=== PATIENT | female | born 1935 | race Caucasian/White ===

== ENCOUNTER → 2019-12-06 | Outpatient (CLI) | payer MEDICARE, OTHER ==
[~2019-12-06] MED LIST: ADVIL200 MG PO; ALKA-SELTZER PO; ASPIRIN325 MG PO; CIPRO500 MG PO; COQ-10 PO; CYANOCOBAL1000 MCG/M IM; EXCEDRIN PO; FIBER PO; IMODIUM2 MG PO; IOPAMIDOL 370 MG/ML 200 ML INFUS..BTL INJ ONE; LORAZEPAM PO; LUMIGAN2.5 M1 OU; MICARDIS80 MG PO; OS-CAL 500+D T1 EACH PO; PEPCID20 MG PO; REFRESH OPTIVE10 ML OU; SODIUM CHLORIDE 0.9% 500ML 500 ML ONE; SODIUM CHLORIDE 0.9% 50ML 50 ML ONE; TRAVATAN Z5 ML OS; TYLENOL PO; VITAMIN B12 IM; VITAMIN D3 1,01 EACH PO; ZOCOR20 MG PO; ZOLPIDEM TARTRA10 MG PO; [UNRECOGNIZED DRUG - OTHER] PO
[2019-12-06 17:44] LABS: CREATININE, SERUM 0.97 mg/dL (0.57-1.11)
--- NOTE | 2019-12-06 21:12 | Diagnostic Imaging Report ---
EXAM: CT Abdomen and Pelvis WITH contrast INDICATION: Diarrhea, abdominal pain COMPARISON: None. TECHNIQUE: Abdomen and pelvis were scanned utilizing a multidetector helical scanner from the lung base to the pubic symphysis after administration of IV contrast. Coronal and sagittal reformations were obtained. Routine protocol was performed. Scan was performed when during portal venous phase. IV CONTRAST: 100 mL of Isovue 370 ORAL CONTRAST: Water COMPLICATIONS: None RADIATION DOSE: Total DLP: 299 mGy*cm Estimated effective dose: (DLP x 0.015 x size factor) mSv CTDIvol has been reviewed. It is below the limits set by the Radiation Protocol Committee (RPC). Dose modulation, iterative reconstruction, and/or weight based adjustment of the mA/kV was utilized to reduce the radiation dose to as low as reasonably achievable. FINDINGS: LINES and TUBES: None. LOWER THORAX: Mild chronic scarring/interstitial change of the lung bases. No pleural effusion. HEPATOBILIARY: No focal hepatic lesions. No biliary ductal dilation. GALLBLADDER: No radio-opaque stones or sludge. No wall thickening. SPLEEN: No splenomegaly. PANCREAS: No focal masses or ductal dilatation. ADRENALS: No adrenal nodules KIDNEYS/URETERS: Kidneys enhance symmetrically. No hydronephrosis. Multiple bilateral renal cysts, largest 3.9 cm in the left interpolar region. A 1 cm exophytic cyst of the right renal lower pole is slightly dense and is therefore likely hemorrhagic/proteinaceous in content. No stones. GI TRACT: No abnormal distention, wall thickening, or evidence of bowel obstruction. Advanced colonic diverticulosis. Fluid content of the small bowel. PELVIC ORGANS/BLADDER: Grossly unremarkable. LYMPH NODES: No lymphadenopathy. VESSELS: Scattered atherosclerotic calcifications. PERITONEUM / RETROPERITONEUM: No free air or fluid. BONES: No acute osseous abnormality. Thoracolumbar degenerative change. SOFT TISSUES: Unremarkable. IMPRESSION: 1. No acute abdominal or pelvic abnormality. 2. Mildly prominent fluid-filled loops of small bowel. This is a nonspecific finding but may be seen with enteritis. 3. Colonic diverticulosis. No diverticulitis. Signed by: Ziyad Monroy MD on 12/06/2019 9:09 PM
== END ==
LOC: CT 15:32
PROVIDERS: ATTEND Internal Medicine Gastroenterology
DX: R19.7 Diarrhea, unspecified (principal); R10.30 Lower abdominal pain, unspecified
CPT/HCPCS: 36415; 74177; 82565; 84520; 96360; J7040; Q9967

== ENCOUNTER 2020-02-27 11:47 | Emergency (ER) | payer MEDICARE, OTHER ==
[~2020-02-27] VITALS: Ht 154.9 cm; Wt 45.4 kg
[~2020-02-27 11:47] MED LIST changes: -IOPAMIDOL 370 MG/ML 200 ML INFUS..BTL INJ ONE; -SODIUM CHLORIDE 0.9% 500ML 500 ML ONE; -SODIUM CHLORIDE 0.9% 50ML 50 ML ONE
[2020-02-27] MEDS ORDERED: SODIUM CHLORIDE 0.9% 1000ML 1,000 ML IV STA (12:31)
[2020-02-27 12:39] LABS: BASOPHILS # (AUTO) 0.1 (0.0-0.1); BASOPHILS % 0.5 % (0.0-1.0); EOSINOPHILS # (AUTO) 0.1 (0.0-0.4); EOSINOPHILS % 0.4 % (0.0-6.0); HEMATOCRIT 40.7 % (34.2-44.1); HEMOGLOBIN 13.7 g/dL (12.0-16.0); LYMPHOCYTES # (AUTO) 1.7 (1.0-3.2); LYMPHOCYTES % 14.5 % (18.0-39.1); MEAN CORPUSCULAR HEMOGLOBIN 31.6 pg (28-32); MEAN CORPUSCULAR HGB CONC 33.7 g/dL (31-35); MONOCYTES # (AUTO) 0.7 (0.2-0.8); MONOCYTES % 5.9 % (4.4-11.3); NEUTROPHILS # (AUTO) 9.1 (2.1-6.9); NEUTROPHILS % 78.2 % (38.7-80.0); PLATELET COUNT 314 x10e3/uL (140-360); RED BLOOD COUNT 4.33 x10e6/uL (3.6-5.1); RED CELL DISTRIBUTION WIDTH 14.1 % (11.7-14.4)
[2020-02-27 12:44] LABS: INR 0.88; PROTHROMBIN TIME 12.4 seconds (11.9-14.5)
[2020-02-27 12:45] LABS: PARTIAL THROMBOPLASTIN TIME 25.2 seconds (23.8-35.5)
[2020-02-27 12:52] LABS: ALBUMIN 4.5 g/dL (3.5-5.0); ALBUMIN/GLOBULIN RATIO 1.5 (0.8-2.0); ANION GAP 15.4 mmol/L (8-16); CALCIUM 10.8 mg/dL (8.4-10.2); CREATININE, SERUM 1.06 mg/dL (0.57-1.11); MAGNESIUM 2.1 MG/DL (1.3-2.1); POTASSIUM 4.4 mmol/L (3.5-5.1)
[2020-02-27 12:59] LABS: CREATINE KINASE MB 1.3 ng/mL (0-5.0)
[2020-02-27 13:26] LABS: CLARITY,URINE CLEAR (CLEAR); COLOR,URINE YELLOW (YELLOW)
[2020-02-27 13:27] LABS: KETONES,URINE NEGATIVE (NEGATIVE); LEUKOCYTE ESTERASE ,URINE NEGATIVE (NEGATIVE); NITRITE,URINE NEGATIVE (NEGATIVE); PROTEIN,URINE DIPSTICK NEGATIVE (NEGATIVE); URINE UROBILINOGEN 0.2 mg/dL (0.2 - 1)
[2020-02-27 13:28] LABS: BACTERIA,URINE RARE /HPF; BILIRUBIN,URINE NEGATIVE (NEGATIVE); EPITHELIAL CELLS,URINE FEW /LPF; RBC,URINE 0-5 /HPF (0-5); WBC,URINE (MAN) 0-5 /HPF (0-5)
--- NOTE | 2020-02-27 13:56 | Emergency Department Note ---
History of Present Illnes History of Present Illness Chief Complaint: Genitourinary History of Present Illness This is a 84 year old female PT C/O ABDOMINAL CRAMPING AND PAINFUL URINATION X 3-4 DAYS AGO, LAST UTI WAS 30 YRS AGO, PT ALSO STATES THAT SHE IS HAVING EPISODES OF DIARRHEA THAT STARTED THIS MORNING BUT STATES SHE HAS CHRONIC DIARRHEA X YEARS Historian: Patient Arrival Mode: Car Non Destructive Testing Engineer Required: No Onset (how long ago): day(s) (3) Radiation: Reports non-radiation Severity: mild Onset quality: gradual Timing of current episode: intermittent Chronicity: recurrent Context: Denies recent illness Relieving factors: none Exacerbating factors: none Associated symptoms: Reports denies other symptoms Past Medical/Family History Physician Review I have reviewed the patient's past medical and family history. Any updates have been documented here. Past Medical History Recent Fever: No Clinical Suspicion of Infectio: No New/Unexplained Change in Ment: No Past Medical History: Hypertension, UTI's, Anxiety, Hyperlipedemia Other Medical History: GLAUCOMA Social History Smoking Cessation: Current every day smoker Counseling Performed: Yes Alcohol Use: None Any Illegal Drug Use: No TB Exposure/Symptoms: No Physically hurt or threatened: No Family History Family history of heart diseas: No Other Any Pre-Existing Lines (PICC,: No Review of Systems Review of Systems Constitutional: Reports no symptoms EENTM: Reports no symptoms Cardiovascular: Reports no symptoms Respiratory: Reports no symptoms Gastrointestinal: Reports as per HPI Genitourinary: Reports as per HPI Musculoskeletal: Reports no symptoms Integumentary: Reports no symptoms Neurological: Reports no symptoms Psychological: Reports no symptoms Endocrine: Reports no symptoms Hematological/Lymphatic: Reports no symptoms Physical Exam Related Data Allergies: Coded Allergies: codeine (Verified Allergy, 11/17/13) meperidine (Verified Allergy, 11/17/13) Triage Vital Signs Vital Signs Date Time Temp Pulse Resp B/P (MAP) Pulse Ox O2 Delivery O2 Flow Rate FiO2 02/27/20 12:08 98.1 78 18 179/88 100 Room Air Vital signs reviewed: Yes Physical Exam CONSTITUTIONAL Constitutional: Present well-developed, Present well-nourished HENT HENT: Present normocephalic, Present atraumatic, Present oropharynx clear/moist, Present nose normal HENT L/R: Present left ext ear normal, Present right ext ear normal EYES Eyes: Reports PERRL, Reports conjunctivae normal NECK Neck: Present ROM normal PULMONARY Pulmonary: Present effort normal, Present breath sounds normal CARDIOVASCULAR Cardiovascular: Present regular rhythm, Present heart sounds normal, Present capillary refill normal, Present normal rate GASTROINTESTINAL Abdominal: Present soft, Present nontender, Present bowel sounds normal GENITOURINARY Genitourinary: Present vagina normal (EXTERNAL EXAM (WITH HAFSA TEMPLE) TO EVALUATE FOR UTERINE OR BLADDER PROLAPSE - NONE, NORMAL EXAM) SKIN Skin: Present warm, Present dry MUSCULOSKELETAL Musculoskeletal: Present ROM normal NEUROLOGICAL Neurological: Present alert, Present oriented x 3, Present no gross motor or sensory deficits PSYCHOLOGICAL Psychological: Present mood/affect normal, Present judgement normal Results Laboratory Result Diagram: 02/27/20 1217 02/27/20 1217 Laboratory Laboratory Tests Test 02/27/20 12:17 White Blood Count 11.69 x10e3/uL (4.8-10.8) Red Blood Count 4.33 x10e6/uL (3.6-5.1) Hemoglobin 13.7 g/dL (12.0-16.0) Hematocrit 40.7 % (34.2-44.1) Mean Corpuscular Volume 94.0 fL (81-99) Mean Corpuscular Hemoglobin 31.6 pg (28-32) Mean Corpuscular Hemoglobin Concent 33.7 g/dL (31-35) Red Cell Distribution Width 14.1 % (11.7-14.4) Platelet Count 314 x10e3/uL (140-360) Neutrophils (%) (Auto) 78.2 % (38.7-80.0) Lymphocytes (%) (Auto) 14.5 % (18.0-39.1) Monocytes (%) (Auto) 5.9 % (4.4-11.3) Eosinophils (%) (Auto) 0.4 % (0.0-6.0) Basophils (%) (Auto) 0.5 % (0.0-1.0) Neutrophils # (Auto) 9.1 (2.1-6.9) Lymphocytes # (Auto) 1.7 (1.0-3.2) Monocytes # (Auto) 0.7 (0.2-0.8) Eosinophils # (Auto) 0.1 (0.0-0.4) Basophils # (Auto) 0.1 (0.0-0.1) Absolute Immature Granulocyte (auto 0.06 x10e3/uL (0-0.1) Prothrombin Time 12.4 seconds (11.9-14.5) Prothromb Time International Ratio 0.88 Activated Partial Thromboplast Time 25.2 seconds (23.8-35.5) Urine Color Yellow (YELLOW) Urine Clarity Clear (CLEAR) Urine pH 7 (5 - 7) Urine Specific [place] 1.015 (1.010-1.025) Urine Protein Negative (NEGATIVE) Urine Glucose (UA) Negative (NEGATIVE) Urine Ketones Negative (NEGATIVE) Urine Blood Negative (NEGATIVE) Urine Nitrite Negative (NEGATIVE) Urine Bilirubin Negative (NEGATIVE) Urine Urobilinogen 0.2 mg/dL (0.2 - 1) Urine Leukocyte Esterase Negative (NEGATIVE) Urine RBC 0-5 /HPF (0-5) Urine WBC 0-5 /HPF (0-5) Urine Epithelial Cells Few /LPF (NONE) Urine Bacteria Rare /HPF (NONE) Sodium Level 137 mmol/L (136-145) Potassium Level 4.4 mmol/L (3.5-5.1) Chloride Level 100 mmol/L (98-107) Carbon Dioxide Level 26 mmol/L (22-29) Anion Gap 15.4 mmol/L (8-16) Blood Urea Nitrogen 17 mg/dL (7-26) Creatinine 1.06 mg/dL (0.57-1.11) Estimat Glomerular Filtration Rate 49 ML/MIN (60-) BUN/Creatinine Ratio 16 (6-25) Glucose Level 79 mg/dL (74-118) Calcium Level 10.8 mg/dL (8.4-10.2) Magnesium Level 2.1 MG/DL (1.3-2.1) Total Bilirubin 0.5 mg/dL (0.2-1.2) Aspartate Amino Transf (AST/SGOT) 19 IU/L (5-34) Alanine Aminotransferase (ALT/SGPT) 14 IU/L (0-55) Alkaline Phosphatase 51 IU/L (40-150) Creatine Kinase 40 IU/L (29-168) Creatine Kinase MB 1.30 ng/mL (0-5.0) Troponin I 0.012 ng/mL (0-0.300) Total Protein 7.6 g/dL (6.5-8.1) Albumin 4.5 g/dL (3.5-5.0) Globulin 3.1 g/dL (2.3-3.5) Albumin/Globulin Ratio 1.5 (0.8-2.0) Lab results reviewed: Yes Assessment & Plan Medical Decision Making MDM UTI SX'S AND SAYS HER VAGINA FEELS "OPEN", AND SOME DIARRHEA (CHRONIC PROBLEM) - CHECK CBC, CHEM, UA/CX, VAG EXAM TO R/O UTERINE/BLADDER PROLAPSE, ELECTROLYTE ABNL Reassessment Reassessment DC HOME, ROSANGELAYL FOR ABD CRAMPS/DIARRHEA, F/U PCP. PT FEELS BETTER AFTER IVF'S Assessment & Plan Final Impression: (1) Diarrhea (2) Abdominal cramping Depart Disposition: HOME, SELF-CARE Last Vital Signs Date Time Temp Pulse Resp B/P (MAP) Pulse Ox O2 Delivery O2 Flow Rate FiO2 02/27/20 12:08 98.1 78 18 179/88 100 Room Air Home Meds Reported Medications Bimatoprost (LUMIGAN) 2.5 Ml Drops, 2.5 ML OU DAILY, BOTTLE 02/18/14 Loperamide Hcl* (IMODIUM*) 2 Mg Cap, 2 MG PO PRN, CAP 02/18/14 [Wal-Phen] No Conflict Check, 1 TAB PO PRN ALLERGY PILL 11/18/13 [Tylenol] No Conflict Check, 500 MG PO PRN PRN for PAIN 11/18/13 [Coq-10] No Conflict Check, 400 MG PO DAILY 11/18/13 Calcium Carbonate/Vitamin D3 (OS-ALCON 500+D TABLET) 1 Each Tablet, 500 MG PO DAILY, TAB 11/18/13 Ca Cmb No.1/Vit D3/B-6/Fa/B12 (VITAMIN D3 1,000 UNIT TABLET) 1 Each Tablet, 1000 UNITS PO DAILY 11/18/13 Simvastatin (ZOCOR) 20 Mg Tablet, 20 MG PO BEDTIME, TAB 11/18/13 Telmisartan (MICARDIS) 80 Mg Tablet, 80 MG PO DAILY 11/18/13 [Lorazepam] No Conflict Check, 2 MG PO 1/2TID 11/18/13 Cyanocobalamin (CYANOCOBALAMIN INJECTION) 1,000 Mcg/Ml Soln, 2 ML IM Q2WKS, VIAL 11/18/13 Medications in the ED Sodium Chloride 1,000 ml @ 0 mls/hr Q0M STAT IV ; Start 02/27/20 at 12:31; Stop 02/27/20 at 12:33; Status DC XIOMARA MENDOZA MD Feb 27, 2020 13:56
[2020-02-27 13:59] VITALS: BP 153/85
== END 2020-02-27 14:20 | disposition home or self-care (01) ==
LOC: ER 12:10
DX: R10.9 Unspecified abdominal pain (principal); R19.7 Diarrhea, unspecified; R30.0 Dysuria; I10 Essential (primary) hypertension; E78.5 Hyperlipidemia, unspecified; F41.9 Anxiety disorder, unspecified; H40.9 Unspecified glaucoma; F17.210 Nicotine dependence, cigarettes, uncomplicated
CPT/HCPCS: 36415; 80053; 81001; 82550; 82553; 83735; 84484; 85025; 85610; 85730; 87086; 99284; J7030

== ENCOUNTER 2021-10-17 12:32 | Observation (INO) | payer MEDICARE, OTHER ==
[~2021-10-17] VITALS: Ht 152.4 cm; Wt 54.4 kg
[2021-10-17] MEDS ORDERED: HYDRALAZINE HCL 20 MG/ML VIAL IV STA (12:48)
[2021-10-17 13:41] LABS: BASOPHILS # (AUTO) 0.1 (0.0-0.1); BASOPHILS % 0.6 % (0.0-1.0); EOSINOPHILS # (AUTO) 0.3 (0.0-0.4); EOSINOPHILS % 3.1 % (0.0-6.0); HEMATOCRIT 39.5 % (34.2-44.1); HEMOGLOBIN 13.5 g/dL (12.0-16.0); LYMPHOCYTES # (AUTO) 1.9 (1.0-3.2); LYMPHOCYTES % 17.9 % (18.0-39.1); MEAN CORPUSCULAR HEMOGLOBIN 33.2 pg (28-32); MEAN CORPUSCULAR HGB CONC 34.2 g/dL (31-35); MEAN CORPUSCULAR VOLUME 97.1 fL (81-99); MONOCYTES # (AUTO) 0.8 (0.2-0.8); MONOCYTES % 7.8 % (4.4-11.3); NEUTROPHILS # (AUTO) 7.6 (2.1-6.9); PLATELET COUNT 365 x10e3/uL (140-360); RED BLOOD COUNT 4.07 x10e6/uL (3.6-5.1); RED CELL DISTRIBUTION WIDTH 14.6 % (11.7-14.4)
[2021-10-17 14:07] LABS: ALBUMIN 3.6 g/dL (3.5-5.0); ALBUMIN/GLOBULIN RATIO 0.9 (0.8-2.0); ANION GAP 13.1 mmol/L (8-16); CALCIUM 10.5 mg/dL (8.4-10.2); CREATININE, SERUM 0.92 mg/dL (0.57-1.11); POTASSIUM 4.1 mmol/L (3.5-5.1)
[2021-10-17] MEDS ORDERED: SODIUM CHLORIDE FLUSH 10 ML SYR INJ PRN (14:45)
[2021-10-17] MEDS ORDERED: ASPIRIN 81 MG CHEW TAB PO ONE (14:45)
[2021-10-17] MEDS ORDERED: ONDANSETRON HCL INJ 2MG/ML 2ML 2 MG/ML VIAL IV PRN (14:45)
[2021-10-17] MEDS ORDERED: LACTULOSE SYRUP 20 GM/30 ML UDC PO ONE (15:00)
[2021-10-17 16:39] VITALS: BP 152/84
[2021-10-17 17:31] VITALS: BP 152/84
[2021-10-17] MEDS ORDERED: ACETAMINOPHEN 325 MG TAB PO PRN ×2 (18:15→18:45)
[2021-10-17] MEDS ORDERED: LABETALOL HCL 5 MG/ML 20ML VIAL IV PRN (18:15)
[2021-10-17] MEDS ORDERED: DAILY VITAMIN1 EAC4 PO (18:33)
[2021-10-17] MEDS ORDERED: ALL DAY RELIEF220 MG PO (18:33)
[2021-10-17] MEDS ORDERED: CALCIUM CARBON500 MG PO (18:33)
[2021-10-17] MEDS ORDERED: SENOKOT-S TABL1 EACH PO (18:33)
[2021-10-17] MEDS ORDERED: ATIVAN2 MG PO (18:33)
[2021-10-17] MEDS ORDERED: ALIGN4 MG PO (18:33)
[2021-10-17] MEDS ORDERED: B COMPLEX FORM0.4 MG PO (18:33)
[2021-10-17] MEDS ORDERED: NAPROXEN250 MG PO (18:33)
[2021-10-17] MEDS ORDERED: TUMS ULTRA400 MG PO (18:33)
[2021-10-17] MEDS ORDERED: PROTONIX40 MG PO (18:33)
[2021-10-17] MEDS ORDERED: VYZULTA2.5 ML OP (18:33)
[2021-10-17] MEDS ORDERED: REFRESH PLUS1 EACH (18:33)
[2021-10-17] MEDS ORDERED: COSOPT EYE DROP10 ML OP (18:33)
[2021-10-17] MEDS ORDERED: TYLENOL325 MG PO (18:33)
[2021-10-17] MEDS ORDERED: ATIVAN1 MG PO (18:33)
[2021-10-17] MEDS ORDERED: VOLTAREN ARTHRI20 GM TOP (18:33)
[2021-10-17] MEDS ORDERED: PANTOPRAZOLE SO40 MG PO (18:35)
[2021-10-17] MEDS ORDERED: SENNA-S TABLET PO PRN (18:45)
[2021-10-17] MEDS ORDERED: LORAZEPAM 1 MG TAB PO PRN (18:45)
[2021-10-17] MEDS ORDERED: TRAMADOL HCL 50 MG TAB PO PRN (19:00)
[2021-10-17] MEDS: LORAZEPAM 1 MG TAB PO SCH (21:00)
[2021-10-17] MEDS ORDERED: LATANOPROSTENE BUNOD OP SCH (21:00)
[2021-10-17] MEDS ORDERED: SIMVASTATIN 20 MG TAB PO SCH (21:00)
[2021-10-17] MEDS ORDERED: DORZOLAMIDE/TIMOLOL (OPTH SOL) 10 ML DRPETTE OP SCH (21:00)
[2021-10-17 21:06] VITALS: BP 137/79
[2021-10-18 00:46] VITALS: BP 136/76
[2021-10-18 05:02] LABS: BASOPHILS # (AUTO) 0.1 (0.0-0.1); BASOPHILS % 0.9 % (0.0-1.0); EOSINOPHILS # (AUTO) 0.3 (0.0-0.4); EOSINOPHILS % 3.6 % (0.0-6.0); HEMATOCRIT 36.5 % (34.2-44.1); HEMOGLOBIN 12.3 g/dL (12.0-16.0); LYMPHOCYTES # (AUTO) 1.7 (1.0-3.2); LYMPHOCYTES % 21.2 % (18.0-39.1); MEAN CORPUSCULAR HEMOGLOBIN 32.9 pg (28-32); MEAN CORPUSCULAR HGB CONC 33.7 g/dL (31-35); MEAN CORPUSCULAR VOLUME 97.6 fL (81-99); MONOCYTES % 11.9 % (4.4-11.3); NEUTROPHILS % 61.8 % (38.7-80.0); PLATELET COUNT 330 x10e3/uL (140-360); RED BLOOD COUNT 3.74 x10e6/uL (3.6-5.1)
[2021-10-18 05:30] LABS: ALBUMIN/GLOBULIN RATIO 0.9 (0.8-2.0); ANION GAP 12.8 mmol/L (8-16); CALCIUM 10.3 mg/dL (8.4-10.2); CREATININE, SERUM 0.94 mg/dL (0.57-1.11); MAGNESIUM 1.8 MG/DL (1.3-2.1); POTASSIUM 3.8 mmol/L (3.5-5.1)
[2021-10-18 05:32] VITALS: BP 157/88
[2021-10-18 05:45] LABS: CHOL/HDL RATIO 3.1 (3.0-3.6)
[2021-10-18 06:47] LABS: CREATINE KINASE MB 1.1 ng/mL (0-5.0)
[2021-10-18 08:00] VITALS: BP 151/94
[2021-10-18 08:22] VITALS: BP 151/94
[2021-10-18] MEDS ORDERED: SENNOSIDES 8.6 MG TAB PO SCH (09:00)
[2021-10-18] MEDS ORDERED: DOCUSATE SODIUM 100 MG CAP PO SCH (09:00)
[2021-10-18] MEDS ORDERED: TELMISARTAN 40 MG TAB PO SCH (09:00)
[2021-10-18] MEDS ORDERED: ESCITALOPRAM OXALATE 10 MG TAB PO SCH (09:00)
[2021-10-18] MEDS ORDERED: PANTOPRAZOLE SOD 40 MG TABEC PO SCH (09:00)
[2021-10-18] MEDS ORDERED: NIFEDIPINE CR 30 MG TAB PO SCH (09:00)
[2021-10-18] MEDS: LORAZEPAM 1 MG TAB PO SCH (09:26)
[2021-10-18] MEDS ORDERED: ULTRAM 50MG50 MG PO (11:12)
[2021-10-18] MEDS ORDERED: LEXAPRO10 MG PO (11:12)
[2021-10-18] MEDS ORDERED: ATIVAN1 MG PO (11:12)
[2021-10-18 11:35] VITALS: BP 160/78
[2021-10-18] MEDS ORDERED: ONDANSETRON HCL 4 MG ORAL DISINTEGRATING TAB PO PRN (12:45)
[2021-10-18] MEDS ORDERED: ENOXAPARIN 30 MG/0.3 ML SYR SC SCH (17:00)
== END 2021-10-18 12:37 | disposition home or self-care (01) ==
LOC: ER 12:43 → INTOOBSV 14:44 → ERHOLD 14:44 → MED/SURG 16:10
PROVIDERS: ADMIT Internal Medicine; ATTEND Internal Medicine
DX: I10 Essential (primary) hypertension (principal); R51.9 Headache, unspecified; K59.00 Constipation, unspecified; F41.9 Anxiety disorder, unspecified; E78.5 Hyperlipidemia, unspecified; R94.31 Abnormal electrocardiogram [ECG] [EKG]; K21.9 Gastro-esophageal reflux disease without esophagitis; M25.561 Pain in right knee; H40.9 Unspecified glaucoma; Z88.5 Allergy status to narcotic agent; Z88.8 Allergy status to other drugs, medicaments and biological substances; Z87.440 Personal history of urinary (tract) infections; Z86.16 Personal history of COVID-19; Z20.822 Contact with and (suspected) exposure to COVID-19
CPT/HCPCS: 36415 ×2; 71045; 80053 ×2; 80061; 82550; 82553; 83735; 84484 ×2; 85025 ×2; 93005; 93306; 94799 ×2; 99284; G0378 ×2; J0360; S0164; U0002

== ENCOUNTER 2023-12-01 20:22 | Inpatient (IN) | payer MEDICARE, OTHER ==
[~2023-12-01] VITALS: Ht 154.9 cm; Wt 54.4 kg
[~2023-12-01 20:22] MED LIST changes: +ACETAMINOPHEN 1000 MG/100 ML IV ONE; +ALIGN4 MG PO; +ALL DAY RELIEF220 MG PO; +AMLODIPINE BESYL5 MG PO; +ATIVAN1 MG PO; +ATIVAN2 MG PO; +B COMPLEX FORM0.4 MG PO; +BRIMONIDINE TART5 ML; +CAL-GEST200 MG PO; +CALCIUM CARBON500 MG PO; +COLACE100 MG/10 PO; +COSOPT EYE DROP10 ML OP; +DAILY VITAMIN1 EAC4 PO; +DEXAMETHASONE SOD PHOS INJ 4 MG/ML SDV ONE; +HYDRALAZINE HCL50 MG PO; +LATANOPROST2.5 ML; +LEXAPRO10 MG PO; +LIDOCAINE HCL 2% LOCAL INJ 5 ML SDV VIAL INJ ONE; +LOSARTAN POTAS100 MG PO; +MELATONIN3 MG PO; +MELOXICAM7.5 MG PO; +MIRALAX17 GM PO; +NAPROXEN250 MG PO; +ONDANSETRON HCL INJ 2MG/ML 2ML 2 MG/ML VIAL ONE; +ONDANSETRON ODT8 MG PO; +PANTOPRAZOLE SO40 MG PO; +PROPOFOL IV EMULSION 10 MG/ML 20 ML VIAL ONE; +PROTONIX40 MG PO; +REFRESH PLUS1 EACH; +ROCURONIUM BROMIDE 10 MG/ML 5ML VIAL IV ONE; +SENOKOT-S TABL1 EACH PO; +SEVOFLURANE INHAL SOLN 250 ML PEN BTL ONE; +SUGAMMADEX SODIUM 200 MG/2 ML VIAL IV ONE; +TRAZODONE HCL50 MG PO; +TUMS ULTRA400 MG PO; +TYLENOL325 MG PO; +ULTRAM 50MG50 MG PO; +VOLTAREN ARTHRI20 GM TOP; +VYZULTA2.5 ML OP
[2023-12-01] MEDS ORDERED: ONDANSETRON HCL INJ 2MG/ML 2ML 2 MG/ML VIAL IV PRN (22:15)
[2023-12-01] MEDS ORDERED: Morphine 4mg INJECTION 4 MG/ML INJ IV PRN (22:15)
[2023-12-02] VITALS (14 sets, daily range): BP systolic 132–166; BP diastolic 70–110; PULSE 60–88; RESP 16–29; TEMP 97.9–98.5; O2SAT 92–96
[2023-12-02 00:24] LABS: BASOPHILS # (AUTO) 0.1 (0.0-0.1); BASOPHILS % 0.4 % (0.0-1.0); EOSINOPHILS # (AUTO) 0.3 (0.0-0.4); EOSINOPHILS % 2.2 % (0.0-6.0); HEMATOCRIT 33.5 % (34.2-44.1); HEMOGLOBIN 11.6 g/dL (12.0-16.0); LYMPHOCYTES # (AUTO) 2.6 (1.0-3.2); LYMPHOCYTES % 18.8 % (18.0-39.1); MEAN CORPUSCULAR HEMOGLOBIN 31.8 pg (28-32); MEAN CORPUSCULAR HGB CONC 34.6 g/dL (31-35); MEAN CORPUSCULAR VOLUME 91.8 fL (81-99); MONOCYTES # (AUTO) 1.6 (0.2-0.8); MONOCYTES % 11.6 % (4.4-11.3); NEUTROPHILS # (AUTO) 9.1 (2.1-6.9); NEUTROPHILS % 66.3 % (38.7-80.0); PLATELET COUNT 213 x10e3/uL (140-360); RED BLOOD COUNT 3.65 x10e6/uL (3.6-5.1); RED CELL DISTRIBUTION WIDTH 16.6 % (11.7-14.4); WHITE BLOOD COUNT 13.74 x10e3/uL (4.8-10.8)
[2023-12-02 00:39] LABS: ALBUMIN 3.2 g/dL (3.5-5.0); ANION GAP 13.4 mmol/L (8-16); BILIRUBIN,TOTAL 0.5 mg/dL (0.2-1.2); CALCIUM 10.4 mg/dL (8.4-10.2); CREATININE, SERUM 0.83 mg/dL (0.57-1.11); POTASSIUM 4.4 mmol/L (3.5-5.1); TOTAL PROTEIN 6.4 g/dL (6.5-8.1)
[2023-12-02] MEDS ORDERED: ACETAMINOPHEN 325 MG TAB PO PRN (10:30)
[2023-12-02] MEDS ORDERED: HYDRALAZINE HCL 20 MG/ML VIAL IV PRN (10:30)
[2023-12-02] MEDS ORDERED: FENTANYL CITRATE/PF 100MCG/2 ML INJ ONE (11:34)
[2023-12-02] MEDS ORDERED: DIPHENHYDRAMINE HCL INJ 50 MG/ML VIAL IV PRN (12:45)
[2023-12-02] MEDS ORDERED: ONDANSETRON HCL INJ 2MG/ML 2ML 2 MG/ML VIAL IV PRN (12:45)
[2023-12-02] MEDS ORDERED: ACETAMINOPHEN 650 MG SUPP PR PRN (12:45)
[2023-12-02] MEDS ORDERED: ALBUTEROL/IPRATROPIUM 3 ML NEB ONE (13:12)
[2023-12-02] MEDS: LATANOPROST(OPTH) 2.5 ML BTL OP SCH (17:00)
[2023-12-02] MEDS ORDERED: DORZOLAMIDE/TIMOLOL (OPTH SOL) 10 ML DRPETTE OP SCH (17:00)
[2023-12-02] MEDS ORDERED: BRIMONIDINE TARTRATE (OPTH) 5 ML LIQD OP SCH (17:00)
[2023-12-02] MEDS: SODIUM CHLORIDE 0.9% 1000ML 1,000 ML IV SCH (18:22)
[2023-12-02] MEDS: CELECOXIB 200 MG CAP PO SCH (18:22)
[2023-12-02] MEDS: ASPIRIN 325 MG TAB PO SCH (18:22)
[2023-12-02] MEDS: HYDROCODONE/APAP 5MG-325MG TAB PO PRN (18:33)
[2023-12-02] MEDS: DOCUSATE SODIUM 100 MG CAP PO PRN (18:33)
[2023-12-02] MEDS: LORAZEPAM 1 MG TAB PO PRN (18:33)
[2023-12-02] MEDS: SIMVASTATIN 20 MG TAB PO SCH (21:01)
[2023-12-02] MEDS: DORZOLAMIDE/TIMOLOL (OPTH SOL) 10 ML DRPETTE OP SCH (21:02)
[2023-12-03] VITALS (12 sets, daily range): BP systolic 92–157; BP diastolic 71–88; PULSE 72–88; RESP 16–17; TEMP 97.4–98.7; O2SAT 93–95
[2023-12-03 05:55] LABS: HEMATOCRIT 29.2 % (34.2-44.1); HEMOGLOBIN 9.5 g/dL (12.0-16.0)
[2023-12-03] MEDS ORDERED: ACETAMINOPHEN 1000 MG/100 ML IV PRN (12:45)
[2023-12-03] MEDS: BISACODYL 10 MG SUPP PR ONE (15:18)
[2023-12-03] MEDS: HYDROCODONE/APAP 7.5MG-325MG 1 EA TAB PO PRN (21:47)
[2023-12-04] VITALS (8 sets, daily range): BP systolic 105–153; BP diastolic 75–104; PULSE 82–95; RESP 16–19; TEMP 97.5–98.1; O2SAT 96–100
[2023-12-04 05:55] LABS: BASOPHILS % 0.3 % (0.0-1.0); EOSINOPHILS # (AUTO) 0.4 (0.0-0.4); EOSINOPHILS % 3.7 % (0.0-6.0); HEMATOCRIT 27.9 % (34.2-44.1); LYMPHOCYTES # (AUTO) 2.1 (1.0-3.2); LYMPHOCYTES % 20.4 % (18.0-39.1); MEAN CORPUSCULAR HGB CONC 32.3 g/dL (31-35); MEAN CORPUSCULAR VOLUME 96.2 fL (81-99); MONOCYTES # (AUTO) 1.2 (0.2-0.8); MONOCYTES % 11.3 % (4.4-11.3); NEUTROPHILS # (AUTO) 6.4 (2.1-6.9); NEUTROPHILS % 63.6 % (38.7-80.0); PLATELET COUNT 281 x10e3/uL (140-360); RED CELL DISTRIBUTION WIDTH 14.8 % (11.7-14.4); WHITE BLOOD COUNT 10.14 x10e3/uL (4.8-10.8)
[2023-12-04 06:46] LABS: ANION GAP 10.3 mmol/L (8-16); CALCIUM 8.7 mg/dL (8.4-10.2); CREATININE, SERUM 0.76 mg/dL (0.57-1.11); POTASSIUM 4.3 mmol/L (3.5-5.1)
[2023-12-04] MEDS: SOD PHOSPHATE/SOD BIPHOSPHATE ENEMA 132 ML BTL PR ONE (09:41)
== END 2023-12-04 12:49 | DRG 480 ==
LOC: ER 20:40 → ERHOLD 22:05 → PACU V 12-02 12:22 → MED/SURG3 12-02 14:50
PROVIDERS: ADMIT Internal Medicine; ATTEND Internal Medicine
PROC: 0QS606Z Reposition Right Upper Femur with Intramedullary Internal Fixation Device, Open Approach (ICD-10-PCS; principal; 2023-12-02 11:43)
DX: M80.051A Age-related osteoporosis with current pathological fracture, right femur, initial encounter for fracture (principal); U07.1 COVID-19; I10 Essential (primary) hypertension; F41.9 Anxiety disorder, unspecified; K21.9 Gastro-esophageal reflux disease without esophagitis; M19.90 Unspecified osteoarthritis, unspecified site; R54 Age-related physical debility; H40.9 Unspecified glaucoma; E78.00 Pure hypercholesterolemia, unspecified; K59.00 Constipation, unspecified; Z88.1 Allergy status to other antibiotic agents; Z88.5 Allergy status to narcotic agent; Z88.8 Allergy status to other drugs, medicaments and biological substances; Z79.82 Long term (current) use of aspirin; Z99.3 Dependence on wheelchair; Z87.310 Personal history of (healed) osteoporosis fracture; Z82.49 Family history of ischemic heart disease and other diseases of the circulatory system; Z83.79 Family history of other diseases of the digestive system; Z84.1 Family history of disorders of kidney and ureter; Z85.828 Personal history of other malignant neoplasm of skin
CPT/HCPCS: 36415; 71045; 76000; 80048; 80053; 85014; 85018; 85025; 86850; 86900; 93005; 93971; 94799; 99285; C1713; J0690; J1100; J2001; J2405; J7030; U0002